=== PATIENT | female | born 1955 | race Caucasian/White ===

== ENCOUNTER 2020-01-06 18:29 | Emergency (ER) | payer BC, MEDICAID ==
[~2020-01-06] VITALS: Ht 162.6 cm; Wt 94.1 kg
[2020-01-06 18:31] VITALS: BP 150/73
[2020-01-06] MEDS ORDERED: ketorolac trometh inj. 60 MG/2 ML VIAL IM ONE (19:30)
[2020-01-06] MEDS ORDERED: ACET-3067 PO (19:35)
== END 2020-01-06 20:40 | disposition home or self-care (01) ==
LOC: ER 18:30
DX: S80.02XA Contusion of left knee, initial encounter (principal); S92.515A Nondisplaced fracture of proximal phalanx of left lesser toe(s), initial encounter for closed fracture; I10 Essential (primary) hypertension; J45.909 Unspecified asthma, uncomplicated; Z79.899 Other long term (current) drug therapy; W19.XXXA Unspecified fall, initial encounter; Y93.89 Activity, other specified; Y92.89 Other specified places as the place of occurrence of the external cause; Y99.8 Other external cause status
CPT/HCPCS: 73564; 73630; 96372; 99284; J1885

== ENCOUNTER 2022-09-24 22:45 | Emergency (ER) | payer MEDICARE, MEDICAID ==
[~2022-09-24] VITALS: Ht 162.6 cm; Wt 92.7 kg
[2022-09-24 23:59] LABS: ALANINE AMINOTRANSFERASE 35 U/L (12-78); ALBUMIN 3.6 G/DL (3.4-5.0); ALKALINE PHOSPHATASE 72 IU/L (46-116); ANION GAP 6 (8-16); ASPARTATE AMINO TRANSFERASE 21 U/L (10-37); BILIRUBIN,TOTAL 0.3 MG/DL (0.1-1.0); BLOOD UREA NITROGEN 10 MG/DL (7-18); BUN/CREATININE RATIO 14.3 (10.0-20.0); CALCIUM 9.2 MG/DL (8.5-10.1); CHLORIDE 103 MMOL/L (99-107); GLUCOSE 103 MG/DL (70-104); POTASSIUM 3.6 MMOL/L (3.5-5.1); SODIUM 138 MMOL/L (135-145); TOTAL CARBON DIOXIDE 29.3 MMOL/L (24-32); TOTAL PROTEIN 7.2 G/DL (6.4-8.2); eGFR 83 ML/MIN
[2022-09-25 00:03] LABS: BASOPHILS % (AUTO) 0.8 % (0-1); EOSINOPHILS # (AUTO) 0.1 X10'3 (0-0.9); EOSINOPHILS % (AUTO) 2.5 % (0-6); HEMATOCRIT 36.3 % (35.0-45.0); HEMOGLOBIN 11.9 g/dl (12.0-16.0); LYMPHOCYTES # (AUTO) 1.9 X10'3 (1.1-4.8); MEAN CORPUSCULAR HEMOGLOBIN 28.7 PG (27.0-31.0); MEAN CORPUSCULAR HGB CONC 32.8 g/dL (33.0-36.5); MEAN CORPUSCULAR VOLUME 87.5 FL (78-98); MEAN PLATELET VOLUME 8.8 FL (7.4-10.4); MONOCYTES # (AUTO) 0.9 X10'3 (0-0.9); MONOCYTES % (AUTO) 16.8 % (2-12); NEUTROPHILS # (AUTO) 2.4 X10'3 (1.8-7.7); NEUTROPHILS % (AUTO) 44.9 % (42-75); PLATELET COUNT 289 X10'3 (140-440); RED BLOOD COUNT 4.15 X10'6 (4.20-5.60); RED CELL DISTRIBUTION WIDTH 14.3 % (11.5-14.5); WHITE BLOOD COUNT 5.3 X10'3 (4.5-11.0)
[2022-09-25 00:06] LABS: MAGNESIUM 1.8 MG/DL (1.5-2.4)
[2022-09-25] MEDS ORDERED: BENZ-38 PO (00:47)
[2022-09-25 01:07] VITALS: BP 137/67
== END 2022-09-25 01:09 | disposition home or self-care (01) ==
LOC: ER 22:46
DX: R07.9 Chest pain, unspecified (principal)
CPT/HCPCS: 36415; 71045; 80053; 83735; 83880; 84484; 85025; 93005; 99285

== ENCOUNTER 2023-03-24 11:18 | Day surgery (SDC) | payer MEDICARE, MEDICAID ==
[2023-03-17 15:04] LABS: BASOPHILS # (AUTO) 0.1 X10'3 (0-0.2); BASOPHILS % (AUTO) 1.3 % (0-1); EOSINOPHILS # (AUTO) 0.1 X10'3 (0-0.9); EOSINOPHILS % (AUTO) 1.9 % (0-6); LYMPHOCYTES # (AUTO) 1.9 X10'3 (1.1-4.8); LYMPHOCYTES % (AUTO) 25.4 % (21-51); MEAN CORPUSCULAR HEMOGLOBIN 29.2 PG (27.0-31.0); MEAN CORPUSCULAR HGB CONC 32.9 g/dL (33.0-36.5); MEAN CORPUSCULAR VOLUME 88.8 FL (78-98); MEAN PLATELET VOLUME 9.2 FL (7.4-10.4); MONOCYTES # (AUTO) 0.7 X10'3 (0-0.9); MONOCYTES % (AUTO) 8.8 % (2-12); NEUTROPHILS # (AUTO) 4.7 X10'3 (1.8-7.7); NEUTROPHILS % (AUTO) 62.6 % (42-75); PRE OP HEMATOCRIT 39.6 % (35.0-45.0); PRE OP PLATELET COUNT 310 X10'3 (140-440); PRE OP WHITE BLOOD COUNT 7.4 10'3 (4.8-10.8); RED BLOOD COUNT 4.46 X10'6 (4.20-5.60); RED CELL DISTRIBUTION WIDTH 14.5 % (11.5-14.5)
[2023-03-17 15:07] LABS: PRE OP INR 1.2 INR; PRE OP PROTIME 12.3 SECONDS (9.0-12.0)
[2023-03-17 15:24] LABS: ALKALINE PHOSPHATASE 72 IU/L (46-116); BLOOD UREA NITROGEN 10 MG/DL (7-18); BUN/CREATININE RATIO 18.5 (10.0-20.0); CALCIUM 9.6 MG/DL (8.5-10.1); CHLORIDE 102 MMOL/L (99-107); CREATININE 0.54 MG/DL (0.40-0.90); PRE OP ALT 33 U/L (30-65); PRE OP ANION GAP 6 (8-16); PRE OP AST 22 U/L (10-37); PRE OP BILIRUB, TOTAL 0.6 MG/DL (0.0-1.0); PRE OP GLUCOSE 96 MG/DL (70-104); PRE OP SODIUM 139 MMOL/L (135-145); TOTAL CARBON DIOXIDE 31.3 MMOL/L (24-32); TOTAL PROTEIN 7.9 G/DL (6.4-8.2); eGFR > 90 ML/MIN
[~2023-03-24] VITALS: Ht 160 cm; Wt 92.8 kg
[2023-03-24] VITALS (8 sets, daily range): BP systolic 128–169; BP diastolic 67–91; PULSE 71–86; RESP 10–16; TEMP 97.9; O2SAT 94–100
[~2023-03-24 11:18] MED LIST: AMLO5TAB16 PO; BACL10TA2 PO; BUDE10.7 INH; CALCIUM; CYAN-34 PO; DHEA; FLUC200T93 PO; GABA300C PO; NAPR-996 PO; UBIQUINOL; VIT D; [UNRECOGNIZED DRUG - OTHER]; cefazolin 2gm/D5W 100mL 100 ML IV ONE; famotidine 20mg tablet PO ONE; ringers solution, lacted 1,000 ML IV SCH
[2023-03-24] MEDS ORDERED: methylene blue (5mg/ml) 50mg/10ml ampul IV ONE (11:48)
[2023-03-24] MEDS ORDERED: LIDOcaine 1% 30ml preserv. free vial ONE (11:48)
[2023-03-24] MEDS ORDERED: BUPIVAcaine/PF 2.5mg/ml (0.25%) 10ml vial ONE (11:48)
[2023-03-24] MEDS ORDERED: fentaNYL/PF 50MCG/1 ML 2ML syringe ONE (12:12)
[2023-03-24] MEDS ORDERED: propofol inj 20 ML IV ONE (12:12)
[2023-03-24] MEDS ORDERED: midazolam 1 mg/ML 2ml injection ONE (12:12)
[2023-03-24] MEDS ORDERED: proCHLORperazine 10 MG/2 ml inj IV PRN (12:20)
[2023-03-24] MEDS ORDERED: meperidine/PF 25mg/ml syringe IV PRN ×3 (12:20)
[2023-03-24] MEDS ORDERED: morphine 2 MG/ML inj. syringe IV PRN (12:20)
[2023-03-24] MEDS ORDERED: ondansetron/PF 4mg/2ml inj IV PRN (12:20)
[2023-03-24] MEDS ORDERED: ringers solution, lacted 1,000 ML IV SCH (12:20)
[2023-03-24] MEDS ORDERED: morphine 4 MG/ML inj SYRINge IV PRN (12:20)
[2023-03-24] MEDS ORDERED: sevoflurane 250ml liquid IH ONE (12:22)
[2023-03-24] MEDS ORDERED: dexamethasone sod phosphate 4mg/ml inj. ONE (13:53)
[2023-03-24] MEDS ORDERED: ondansetron/PF 4mg/2ml inj ONE (13:53)
--- NOTE | 2023-03-24 13:56 | NUR ---
Received from OR via [facility], accompanied by Anesthesiologist DR. PITTMAN and report given by Anesthesiolgist. L.FA 20G PIV WITH LR INFUSING PER ORDER. OXYGEN MASK 5L 100% SAT. ASKING FOR WATER. RIGHT BREAST DRESSING CDI WITH FLEXY BRA IN PLACE.
--- NOTE | 2023-03-24 15:06 | NUR ---
ALL DISCHARGE CRITERIA HAS BEEN MET. VSS, PAIN AT TOLERABLE LEVEL. ABLE TO SAFELY AMBULATE AND TRANSFER SELF. IV TAKEN OUT WITHOUT ANY COMPLICATIONS. ALL DISCHARGE INSTRUCTIONS COVERED WITH PATIENT AND ALL QUESTIONS ANSWERED. PATIENT TAKEN OUT VIA WHEELCHAIR TO PERSONAL VEHICLE WHERE FAMILY/FRIEND DROVE PATIENT HOME.
== END 2023-03-24 15:06 | disposition home or self-care (01) ==
LOC: PAS 11:18
PROVIDERS: ATTEND Surgery
DX: N60.91 Unspecified benign mammary dysplasia of right breast (principal); I10 Essential (primary) hypertension; J44.9 Chronic obstructive pulmonary disease, unspecified; G62.9 Polyneuropathy, unspecified; M19.90 Unspecified osteoarthritis, unspecified site; E66.9 Obesity, unspecified; Z68.36 Body mass index [BMI] 36.0-36.9, adult; Z98.890 Other specified postprocedural states; Z79.899 Other long term (current) drug therapy; Z88.8 Allergy status to other drugs, medicaments and biological substances; Z79.01 Long term (current) use of anticoagulants
CPT/HCPCS: 19125; 36415; 76098; 76998; 80053; 82948; 85025; 85610; 85730; 93005; A6258; J0690; J1100; J2175; J2250; J2405; J2704; J3010; J3490; J7030; J7120; Z7506; Z7508; Z7512; A4215; A4618; A6449; A7000; C9250; Q9968

== ENCOUNTER 2023-03-25 16:07 | Emergency (ER) | payer MEDICARE, MEDICAID ==
[~2023-03-25] VITALS: Ht 160 cm; Wt 93.7 kg
[~2023-03-25 16:07] MED LIST changes: -cefazolin 2gm/D5W 100mL 100 ML IV ONE; -famotidine 20mg tablet PO ONE; -ringers solution, lacted 1,000 ML IV SCH
[2023-03-25 16:32] VITALS: BP 142/67; PULSE 77; RESP 18; TEMP 97; O2SAT 98
== END 2023-03-25 21:02 | disposition left against medical advice (07) ==
LOC: ER 16:08
DX: R06.02 Shortness of breath (principal); L76.82 Other postprocedural complications of skin and subcutaneous tissue; Z53.21 Procedure and treatment not carried out due to patient leaving prior to being seen by health care provider
CPT/HCPCS: 99281